=== PATIENT | male | born 1955 ===

== ENCOUNTER 2021-10-30 07:47 | Outpatient (REF) | payer OTHER, SELFPAY ==
--- NOTE | ~2021-10-30 | XR_ITS ---
EXAMINATION: KNEE X-RAY CLINICAL INFORMATION: Pain COMPARISON: None previous left knee x-ray December 2007 TECHNIQUE: 3 views of each knee FINDINGS: Left: Bone alignment is normal. No fracture or dislocation is seen. There is are tricompartment arthritis. There is no significant suprapatellar joint effusion. There are soft tissue ossifications posterior to the knee joint questionable for ossified intra-articular loose bodies and there may be fluid in the posterior knee joint. Right: There may be mild varus angulation. Bone alignment is otherwise normal. No fracture or dislocation is seen. There is tricompartment arthritis. There is an osteophyte at the quadriceps tendon insertion to the patella. There is no joint effusion. XR/XR knee RT 2V IMPRESSION: Bilateral arthritis. Question ossified intra-articular loose bodies in the posterior left knee joint.
--- NOTE | ~2021-10-30 | XR_ITS ---
EXAMINATION: KNEE X-RAY CLINICAL INFORMATION: Pain COMPARISON: None previous left knee x-ray December 2007 TECHNIQUE: 3 views of each knee FINDINGS: Left: Bone alignment is normal. No fracture or dislocation is seen. There is are tricompartment arthritis. There is no significant suprapatellar joint effusion. There are soft tissue ossifications posterior to the knee joint questionable for ossified intra-articular loose bodies and there may be fluid in the posterior knee joint. Right: There may be mild varus angulation. Bone alignment is otherwise normal. No fracture or dislocation is seen. There is tricompartment arthritis. There is an osteophyte at the quadriceps tendon insertion to the patella. There is no joint effusion. XR/XR knee standing BI IMPRESSION: Bilateral arthritis. Question ossified intra-articular loose bodies in the posterior left knee joint.
--- NOTE | ~2021-10-30 | XR_ITS ---
EXAMINATION: KNEE X-RAY CLINICAL INFORMATION: Pain COMPARISON: None previous left knee x-ray December 2007 TECHNIQUE: 3 views of each knee FINDINGS: Left: Bone alignment is normal. No fracture or dislocation is seen. There is are tricompartment arthritis. There is no significant suprapatellar joint effusion. There are soft tissue ossifications posterior to the knee joint questionable for ossified intra-articular loose bodies and there may be fluid in the posterior knee joint. Right: There may be mild varus angulation. Bone alignment is otherwise normal. No fracture or dislocation is seen. There is tricompartment arthritis. There is an osteophyte at the quadriceps tendon insertion to the patella. There is no joint effusion. XR/XR knee LT 2V IMPRESSION: Bilateral arthritis. Question ossified intra-articular loose bodies in the posterior left knee joint.
== END 2021-10-30 07:48 | disposition home or self-care (01) ==
LOC: HO.HOSX 07:47
PROVIDERS: Visit Provider Physician Assistant
DX: M17.0 Bilateral primary osteoarthritis of knee (principal)
CPT/HCPCS: 73560; 73565; 99202

== ENCOUNTER → 2022-04-26 12:54 | Outpatient (BNVA) | payer OTHER, SELFPAY | PROVIDERS: PCP Internal Medicine; Visit Provider Anesthesiology | DX: M17.0 Bilateral primary osteoarthritis of knee (principal) | CPT/HCPCS: 99202 ==

== ENCOUNTER 2022-05-18 06:30 | Outpatient (REF) | payer OTHER, SELFPAY ==
--- NOTE | ~2022-05-18 | FL_ITS ---
INDICATION: Intraoperative fluoroscopy. FLUOROSCOPY: Fluoroscopy Time: 0.3 minutes Dose: 3.5 mGy Images saved: 1 FINDINGS: A single intraoperative fluoroscopic image is submitted during reported procedure of the left knee. Correlation with operative report. Evaluation is limited secondary to fluoroscopic technique. IMPRESSION: Intra-operative fluoroscopic imaging provided by radiology during reported procedure of the left knee. Please refer to operative note for further information.
== END 2022-05-18 06:31 | disposition home or self-care (01) ==
LOC: CF 06:30
PROVIDERS: Visit Provider Anesthesiology
DX: M17.0 Bilateral primary osteoarthritis of knee (principal)
CPT/HCPCS: 64447; J1100

== ENCOUNTER 2022-05-25 06:09 | Outpatient (REF) | payer OTHER, SELFPAY ==
--- NOTE | ~2022-05-25 | FL_ITS ---
EXAMINATION: XR FLUOROSCOPY WITH IMAGES CLINICAL INFORMATION: Osteoarthritis COMPARISON: Radiographs knees 10/28/2021. TECHNIQUE: Fluoroscopy Supervised By: Dr. Jean Goldstein. Fluoroscopy Time: 0.2 minutes. Cumulative Dose: 3.19 mGy. DAP: 0.871 Gycm2. Images: 4. FINDINGS: There are spinal needles adjacent to the distal right femoral shaft, medial and lateral sides, mid depth. There is a spinal needle adjacent to the right proximal tibia on medial side mid depth. There are degenerative changes again seen with narrowing greatest medial knee joint compartment. FL/FL guidance in treatment room IMPRESSION: Fluoroscopy for pain management procedures.
== END 2022-05-25 06:10 | disposition home or self-care (01) ==
LOC: CF 06:09
PROVIDERS: Visit Provider Anesthesiology
DX: M17.0 Bilateral primary osteoarthritis of knee (principal)
CPT/HCPCS: 64454; J2795

== ENCOUNTER → 2022-05-27 08:37 | Outpatient (BNVA) | payer OTHER, SELFPAY | PROVIDERS: PCP Internal Medicine; Visit Provider Anesthesiology | DX: M17.0 Bilateral primary osteoarthritis of knee (principal) | CPT/HCPCS: Q3014 ==

== ENCOUNTER 2022-11-26 13:54 | Emergency (ER) | payer OTHER, SELFPAY ==
--- NOTE | ~2022-11-26 | XR_ITS ---
EXAMINATION: XR CHEST CLINICAL INFORMATION: Chest pain, dyspnea on exertion. COMPARISON: Chest radiographs dated 03/24/2010. TECHNIQUE: 2 views of the chest were obtained. FINDINGS: No significant abnormality is noted involving the heart, lungs, mediastinum, bony thorax or soft tissues. XR/XR chest 2V IMPRESSION: No acute cardiopulmonary process.
--- NOTE | 2022-11-26 13:58 | ECG_ITS ---
Test Reason : SOB Blood Pressure : / mmHG Vent. Rate : 078 BPM Atrial Rate : 078 BPM P-R Int : 178 ms QRS Dur : 152 ms QT Int : 440 ms P-R-T Axes : 001 006 172 degrees QTc Int : 501 ms Normal sinus rhythm Left bundle branch block Abnormal ECG When compared with ECG of 14-MAR-2012 06:26, No significant change was found Referred By: Generic ED Physician Electronically Signed By:Sami Jonas
[2022-11-26 14:02] VITALS: BP 149/59; PULSE 76; RESP 18; TEMP 36.6; O2SAT 96; BMI 35.3
--- NOTE | 2022-11-26 14:05 | ED.GENADULT ---
HPI - General Adult General Chief complaint: Dyspnea Stated complaint: SOB Time Seen by Provider: 11/26/22 14:01 Source: patient Mode of arrival: ambulatory Limitations: no limitations History of Present Illness HPI narrative: Patient is a 67-year-old male with history of CVA, T2DM, HTN, HLD presenting with dyspnea on exertion and burning sensation to his chest. He denies dyspnea or chest pain at rest, states symptoms are only present on exertion. Patient states that he is symptoms have been present for several years and have been slowly worsening. He states that he was doing yard work outside today and stood from a seated position and felt presyncopal. He quit smoking ten years prior. He denies any family history of sudden cardiac . He denies any current chest pain or dyspnea. He described his chest pain as a substernal burning. He denied any calf pain or swelling, denies any lower extremity edema. He denies any radiation of pain to his back. He denies any orthopnea, PND. He denies any abdominal pain, nausea, vomiting. He is not anticoagulated but takes daily ASA. He states he is weaning off of 1 psychiatric medication in increasing the dose of another, but he is unsure of the names of his medications. MD complaint: dyspnea on exertion Onset (ago): year(s) Location: chest Radiation: non-radiation Severity: severe Quality: burning Pain Consistency: intermittent and now resolved Relieving factors: rest Exacerbating factors: movement Associated symptoms: chest pain and shortness of breath Treatments prior to arrival: none Related Data Home Medications Medication Instructions Recorded Confirmed amlodipine 10 mg tablet 10 mg PO DAILY 10/30/21 04/26/22 atorvastatin 80 mg tablet 80 mg PO DAILY 10/30/21 04/26/22 dapagliflozin 10 mg tablet 10 mg PO DAILY 10/30/21 04/26/22 ([facility]) ezetimibe 10 mg tablet 10 mg PO DAILY 10/30/21 04/26/22 fluoxetine 20 mg capsule 60 mg PO DAILY 10/30/21 04/26/22 hydrochlorothiazide 25 mg tablet 25 mg PO DAILY 10/30/21 04/26/22 losartan 100 mg tablet 100 mg PO DAILY 10/30/21 04/26/22 metformin 1,000 mg tablet 1,000 mg PO BID 10/30/21 04/26/22 omeprazole 20 mg capsule,delayed 20 mg PO DAILY 10/30/21 04/26/22 release oxcarbazepine 300 mg tablet 300 mg PO BID 10/30/21 04/26/22 sitagliptin phosphate 100 mg 100 mg PO DAILY 10/30/21 04/26/22 tablet (Januvia) aspirin 81 mg tablet,delayed 81 mg PO DAILY 04/26/22 04/26/22 release (Adult Low Dose Aspirin) Allergies Allergy/AdvReac Type Severity Reaction Status Date / Time No Known Allergies Allergy Mild NOT Unverified 05/27/22 08:38 APPLICABLE lisinopril Allergy Unknown Unknown Verified 05/27/22 08:38 Review of Systems Review of Systems: Yes all other systems are reviewed and are negative Constitutional: Constitutional: Reports as per HPI, Denies chills, Denies fatigue and Denies fever(s) Eyes: Eyes: Reports no additional eye complaints ENT: Reports system reviewed and no additional complaints, except as documented Cardiovascular: Cardiovascular: Denies chest pain at rest, Reports chest pain with activity, Reports Epigastric Pain, Denies diaphoresis, Denies syncope, Denies claudication, Denies leg edema, Reports lightheadedness, Denies Loss of Consciousness, Denies radiating jaw, neck or arm pain, Denies palpitations, Reports dyspnea, Reports dyspnea on exertion and Denies orthopnea Respiratory: Respiratory: Denies chest congestion, Denies cough, Denies hemoptysis, Denies pain on inspiration, Reports dyspnea, Reports dyspnea on exertion and Denies wheezing Gastrointestinal: Gastrointestinal: Denies abdominal pain, Denies melena, Denies hematochezia, Denies nausea and Denies vomiting Genitourinary: Genitourinary: Reports no additional male genitourinary complaints Musculoskeletal: Musculoskeletal: Reports no additional musculoskeletal complaints Integumentary/Breasts: Skin/Breast: Reports system reviewed and no additional complaints, except as docu Neurologic: Reports system reviewed and no additional complaints, except as documented and Denies syncope Psychiatric: Psychiatric: Reports no additional psychiatric complaints Endocrine: Endocrine: Reports no additional endocrine complaints, Denies fatigue and Denies palpitations Hematologic/Lymphatic: Hematologic/Lymphatic: Reports no additional hematologic/lymphatic complaints Allergic/Immunologic: Allergic/Immunologic: Reports no additional allergic/immunologic complaints and Denies wheezing PMFSH Past Medical History Medical History (Updated 11/26/22 @ 15:38 by Shonna Pineda NP) Diabetes Hypercholesteremia Hypertension Seizure Surgical History (Updated 10/30/21 @ 14:20 by FATMATA Hernandez) H/O lithotripsy Hx of cystoscopy Social History Social History (Updated 10/30/21 @ 14:21 by FATMATA Hernandez) Alcohol intake: never Smoked in Last 30 Days: No Use of substances other than those prescribed or required for medical reasons: No Advance Directives: Yes Advance Directives Information Provided: Yes Advance Directives on File: No Current occupational status: disabled Physical Exam ED Vital Signs: Vital Signs - 24 hr 11/26/22 14:02 11/26/22 14:18 11/26/22 15:56 Temperature 97.8 F 97.9 F Pulse Rate 76 78 76 Respiratory Rate 18 17 16 Blood Pressure 149/59 H 157/61 H 139/56 L Pulse Oximetry 96 96 95 Oxygen Delivery Method Room Air Room Air Room Air BMI result Body Mass Index 35.3 Const General: cooperative, healthy appearing and no acute distress Orientation/consciousness: oriented to person, oriented to place, oriented to time and patient oriented x3 Limitations: no limitations HENMT Head: Yes normocephalic and Yes atraumatic Ears: external ears normal General nose exam: Normal external nose present Face and sinus: Yes face symmetric Mouth: oropharynx normal and moist mucous membranes Throat: Yes uvula midline Eyes Pupils: Equal, round and reactive pupils present Neck Neck: Yes normal visual inspection and Yes supple Resp Effort & Inspection: normal respiratory effort and able to speak in complete sentences Auscultation: clear to auscultation bilaterally Cardio Rate: regular rate Rhythm: regular rhythm Heart sounds: S1 normal heart sound present and S2 normal heart sound present GI Palpation (GI): Soft to palpation and nontender Auscultation: normoactive bowel sounds General: Yes no CVA tenderness Back/Spine/Pelvis Back: no CVA tenderness Skin General skin exam: elasticity normal and turgor normal Neuro General: oriented to person, oriented to place, oriented to time, patient oriented x3, moves all extremities, no focal motor deficits and CN's II-XI intact bilaterally Cranial nerves: Yes Equal, round and reactive pupils present Cognition (Neuro): normal cognition Extrem General: Yes full ROM, Yes no pedal edema and Yes no calf tenderness Psych Mental Status: mental status grossly normal Affect: normal affect Thought process: Normal thought process present Medical Decision Making Medical Decision Making MDM Narrative: Patient is a 67-year-old male with history of CVA, T2DM, HTN, HLD presenting with dyspnea on exertion and burning sensation to his chest for the past several years which was progressively worsened. On exam he is awake, A+Ox3, in no acute distress, normal neurological exam without focal deficits, denies chest pain or dyspnea at rest, mildly hypertensive, otherwise VS WNL, no lower extremity edema, lungs clear throughout. EKG without evidence of STEMI, LBBB present on prior EKG from 2011. Given reported symptoms and high risk features, concerned for ACS. Less likely PE, low risk Wells, pneumothorax, thoracic aortic dissection, cardiac effusion/tamponade, esophageal rupture. Unlikely endocarditis, pericarditis, pneumonia. Plan: labs including troponin, EKG, CXR, reassess 16:00 Labs unremarkable, troponin negative, CXR normal. Feel patient is stable to discharge home at this time with referral to cardiology. Instructed patient to follow up with PCP ZANE. Return precautions discussed at bedside. Differential Diagnosis Differential Diagnoses: The differential diagnosis associated with the presentation includes As above. Admission/Observation Consideration of admission/observation: Escalation of care including admission/observation considered Lab Data [facility] Lab Attestation statement: I reviewed the patient's lab results. 11/26/22 14:11 11/26/22 14:11 Labs: Lab Results 11/26/22 11/26/22 11/26/22 Range/Units 14:11 14:11 14:11 WBC 9.8 (4.8-10.8) X10*3/uL RBC 5.21 (4.60-5.80) X10*6/uL Hgb 14.6 (14.0-18.0) g/dl Hct 44.0 (42.0-52.0) % MCV 84.5 (80.0-98.0) fL MCH 28.0 (27.0-33.0) pg MCHC 33.2 (31.0-36.0) g/dl RDW 13.8 (11.0-16.0) % Plt Count 292 (160-400) X10*3/uL MPV 10.2 (9.4-12.4) fL Immature Gran % (Auto) 1.2 H (0.0-0.4) % Neut % (Auto) 67.8 (45-73) % Lymph % (Auto) 18.5 L (20-40) % [place] % (Auto) 6.8 (2-11) % Eos % (Auto) 4.4 H (0-4) % Baso % (Auto) 1.3 (0-2) % Lymph # (Auto) 1.8 (1.2-4.9) X10*3/uL [place] # (Auto) 0.7 (0.1-1.2) X10*3/uL Eos # (Auto) 0.4 (0.0-0.4) X10*3/uL Baso # (Auto) 0.1 (0.0-0.2) X10*3/uL Abs Immat Gran (auto) 0.12 H (0.00-0.03) X10*3/uL Absolute Neuts (auto) 6.6 (2.0-8.3) x10*3/uL Absolute Nucleated RBC 0.000 (0.0-0.012) X10*3/uL Nucleated RBC % (auto) 0.0 (0.0-0.2) /100WBC PT 11.3 (10.0-13.1) SEC INR 1.0 (0.9-1.1) Sodium 140 (135-145) mmol/L Potassium 4.0 (3.3-5.1) mmol/L Chloride 104 (96-108) mmol/L Carbon Dioxide 24 (22-29) mmol/L Anion Gap 16 (12-20) BUN 20 H (9-16) mg/dL Creatinine 0.99 (0.5-1.4) mg/dL Estim Creat Clear Calc 93.2 Estimated GFR > 60 Random Glucose 242 H (60-115) mg/dL Calcium 9.9 (8.4-10.2) mg/dL Troponin I High Sens (<3.5-35.0) ng/L 11/26/22 Range/Units 14:11 WBC (4.8-10.8) X10*3/uL RBC (4.60-5.80) X10*6/uL Hgb (14.0-18.0) g/dl Hct (42.0-52.0) % MCV (80.0-98.0) fL MCH (27.0-33.0) pg MCHC (31.0-36.0) g/dl RDW (11.0-16.0) % Plt Count (160-400) X10*3/uL MPV (9.4-12.4) fL Immature Gran % (Auto) (0.0-0.4) % Neut % (Auto) (45-73) % Lymph % (Auto) (20-40) % [place] % (Auto) (2-11) % Eos % (Auto) (0-4) % Baso % (Auto) (0-2) % Lymph # (Auto) (1.2-4.9) X10*3/uL [place] # (Auto) (0.1-1.2) X10*3/uL Eos # (Auto) (0.0-0.4) X10*3/uL Baso # (Auto) (0.0-0.2) X10*3/uL Abs Immat Gran (auto) (0.00-0.03) X10*3/uL Absolute Neuts (auto) (2.0-8.3) x10*3/uL Absolute Nucleated RBC (0.0-0.012) X10*3/uL Nucleated RBC % (auto) (0.0-0.2) /100WBC PT (10.0-13.1) SEC INR (0.9-1.1) Sodium (135-145) mmol/L Potassium (3.3-5.1) mmol/L Chloride (96-108) mmol/L Carbon Dioxide (22-29) mmol/L Anion Gap (12-20) BUN (9-16) mg/dL Creatinine (0.5-1.4) mg/dL Estim Creat Clear Calc Estimated GFR Random Glucose (60-115) mg/dL Calcium (8.4-10.2) mg/dL Troponin I High Sens 4.1 (<3.5-35.0) ng/L Independent Interpretation I performed an independent interpretation of an: Plain X-Ray Interpretation: EKG: normal sinus rhythm with LBBB, history of LBBB, unchanged from prior, rate 78 bpm, normal NC interval, no STEMI Radiology Impression Discussion of test interpretation with radiology: I have reviewed the radiologist's reading. Radiologist Impression: FINDINGS: No significant abnormality is noted involving the heart, lungs, mediastinum, bony thorax or soft tissues. XR/XR chest 2V IMPRESSION: No acute cardiopulmonary process. External Record Review External record reviewed: Inpatient record, Office record and Outpatient record Chronic Conditions Patient?s care impacted by: Diabetes and Hypertension Discharge Plan Discharge Clinical Impression: Dyspnea on exertion, Chest pain on exertion Patient Disposition: Home, Self-Care Additional Instructions: You were evaluated in the emergency department today for chest pain and shortness of breath with exertion. Your evaluation has shown no signs of medical conditions requiring emergent intervention at this time, however we recommend that you follow-up with your primary care physician as soon as possible for further testing as an outpatient. You are being referred to a respiratory care program director, please follow-up with them this week. Return to the emergency department if you experience worsening or uncontrolled chest pain, shortness of breath, lightheadedness, feeling faint, loss of consciousness, nausea, vomiting, abdominal pain, or any other concerning symptoms. Prescriptions: No Action Januvia 100 mg tablet 100 mg PO DAILY Farxiga 10 mg tablet 10 mg PO DAILY ezetimibe 10 mg tablet 10 mg PO DAILY losartan 100 mg tablet 100 mg PO DAILY hydrochlorothiazide 25 mg tablet 25 mg PO DAILY omeprazole 20 mg capsule,delayed release(DR/EC) 20 mg PO DAILY metformin 1,000 mg tablet 1,000 mg PO BID amlodipine 10 mg tablet 10 mg PO DAILY oxcarbazepine 300 mg tablet 300 mg PO BID atorvastatin 80 mg tablet 80 mg PO DAILY fluoxetine 20 mg capsule 60 mg PO DAILY aspirin [Adult Low Dose Aspirin] 81 mg tablet,delayed release (DR/EC) 81 mg PO DAILY Referrals: [facility] Cardiovascular Services [Provider Group]
--- NOTE | 2022-11-26 14:07 | PC.NURSE ---
Pt. on pvc monitor at this time. Labs collected and sent as ordered.
[2022-11-26 14:17] LABS: MANUAL DIFF FLAG NO
[2022-11-26 14:18] VITALS: BP 157/61; PULSE 78; RESP 17; O2SAT 96
[2022-11-26 14:20] LABS: Basophils Absolute Auto 0.1 X10*3/uL (0.0-0.2); Basophils Percent Auto 1.3 % (0-2); Eosinophils Absolute Auto 0.4 X10*3/uL (0.0-0.4); Eosinophils Percent Auto 4.4 % (0-4); Hemoglobin 14.6 g/dl (14.0-18.0); Imm Gran Abs Auto 0.12 X10*3/uL (0.00-0.03); Imm Gran Pct Auto 1.2 % (0.0-0.4); Lymphocytes Absolute Auto 1.8 X10*3/uL (1.2-4.9); Lymphocytes Percent Auto 18.5 % (20-40); Mean Corpuscular HGB Conc 33.2 g/dl (31.0-36.0); Mean Corpuscular Volume 84.5 fL (80.0-98.0); Mean Platelet Volume 10.2 fL (9.4-12.4); Monocytes Absolute Auto 0.7 X10*3/uL (0.1-1.2); Monocytes Percent Auto 6.8 % (2-11); Neutrophils Absolute Auto 6.6 x10*3/uL (2.0-8.3); Neutrophils Percent Auto 67.8 % (45-73); Platelet Count 292 X10*3/uL (160-400); Red Blood Count 5.21 X10*6/uL (4.60-5.80); Red Cell Distribution Width 13.8 % (11.0-16.0); White Blood Count 9.8 X10*3/uL (4.8-10.8)
[2022-11-26 14:27] LABS: Prothrombin Time 11.3 SEC (10.0-13.1)
[2022-11-26 14:33] LABS: Anion Gap 16 (12-20); Blood Urea Nitrogen 20 mg/dL (9-16); Calcium 9.9 mg/dL (8.4-10.2); Carbon Dioxide 24 mmol/L (22-29); Chloride 104 mmol/L (96-108); Creatinine Clr Calc Pharmacy 93.2; Estimated Glomerular Filt Rate > 60; Glucose Random 242 mg/dL (60-115); Sodium 140 mmol/L (135-145)
[2022-11-26 14:41] LABS: Troponin-I High Sensitivity 4.1 ng/L (<3.5-35.0)
[2022-11-26 15:56] VITALS: BP 139/56; PULSE 76; RESP 16; TEMP 36.6; O2SAT 95
--- NOTE | 2022-11-26 15:56 | MHC.EDTECH ---
THIS PCT ASSUMED CARE OF PATIENT AT 1500 ,VITALS SIGN TAKEN ,PT IS RESTING QUIETLY IN BED .
[2022-11-26 16:26] LABS: B Type Natriuretic Peptide 60 pg/mL (<100)
[2022-11-26 16:48] VITALS: BP 131/60; PULSE 67; RESP 19; O2SAT 97
== END 2022-11-26 16:56 | disposition home or self-care (01) ==
PROVIDERS: Registered Nurse Emergency; Emergency Provider Emergency Medicine Emergency Medical Services; PCP Internal Medicine
DX: R06.02 Shortness of breath (principal); R07.89 Other chest pain; E11.9 Type 2 diabetes mellitus without complications; I10 Essential (primary) hypertension; Z79.899 Other long term (current) drug therapy; Z79.84 Long term (current) use of oral hypoglycemic drugs
CPT/HCPCS: 36415; 71046; 80048; 83880; 84484; 85025; 85610; 93005; 99283; 99284

== ENCOUNTER 2024-03-20 10:46 | Outpatient (REF) | payer OTHER, SELFPAY ==
[2023-05-27 09:15] VITALS: BP 124/44; BP 130/56; BP 140/44; BMI 35.4
[2024-03-20 11:05] LABS: MANUAL DIFF FLAG NO
[2024-03-20 11:23] LABS: Basophils Absolute Auto 0.1 X10*3/uL (0.0-0.2); Basophils Percent Auto 1.8 % (0-2); Eosinophils Absolute Auto 0.6 X10*3/uL (0.0-0.4); Eosinophils Percent Auto 8.6 % (0-4); Hematocrit 42.6 % (42.0-52.0); Hemoglobin 14.5 g/dl (14.0-18.0); Imm Gran Abs Auto 0.02 X10*3/uL (0.00-0.03); Imm Gran Pct Auto 0.3 % (0.0-0.4); Lymphocytes Absolute Auto 1.7 X10*3/uL (1.2-4.9); Lymphocytes Percent Auto 25.4 % (20-40); Mean Corpuscular Hemoglobin 29.7 pg (27.0-33.0); Mean Corpuscular Volume 87.1 fL (80.0-98.0); Mean Platelet Volume 10.9 fL (9.4-12.4); Monocytes Absolute Auto 0.6 X10*3/uL (0.1-1.2); Monocytes Percent Auto 9.1 % (2-11); Neutrophils Absolute Auto 3.7 x10*3/uL (2.0-8.3); Neutrophils Percent Auto 54.8 % (45-73); Platelet Count 189 X10*3/uL (160-400); Red Blood Count 4.89 X10*6/uL (4.60-5.80); Red Cell Distribution Width 13.5 % (11.0-16.0); White Blood Count 6.8 X10*3/uL (4.8-10.8)
[2024-03-20 11:27] LABS: Estimated Average Glucose 183 mg/dL
[2024-03-20 12:28] LABS: Cholesterol 84 mg/dL (<200); Glucose Fasting 133 mg/dL (60-99); HDL Cholesterol 29 mg/dL (>40); LDL Cholesterol Calculated 41 mg/dL (<100); Triglycerides 73 mg/dL (<150)
[2024-03-20 13:42] LABS: Creatinine Urine 72.98 mg/dL
== END 2024-03-20 10:47 | disposition home or self-care (01) ==
LOC: HO.LAB 10:46
PROVIDERS: PCP Internal Medicine; Visit Provider Internal Medicine
DX: E11.9 Type 2 diabetes mellitus without complications (principal)
CPT/HCPCS: 36415; 80061; 82043; 82570; 82947; 83036; 85025

== ENCOUNTER 2024-04-05 15:05 | Outpatient (AMB) | payer OTHER, SELFPAY ==
[2023-05-27 09:15] VITALS: BP 124/44; BP 130/56; BP 140/44; BMI 35.4
[2024-03-20 15:04] VITALS: BP 124/44; BP 130/56; BP 140/44; BMI 35.4
--- NOTE | 2024-04-05 15:09 | MHC.OFFVIS ---
Intake Visit Reasons: OV- B/L knee pain Intake Note: Geovani is a 68 year old male who presents today for follow up of his bilateral knee OA. No hx of gel injections. He reports that his right knee is the worst but he seems that both are equal to pain. Allergies No Known Allergies Allergy (Mild, Unverified 05/27/22 08:38) NOT APPLICABLE lisinopril Allergy (Unknown, Verified 05/27/22 08:38) Unknown HPI HPI OV- B/L knee pain: Details: 68-year-old male who presents in the office today for a follow-up of bilateral knee pain. I last saw the patient in the office on 10/30/21 when we discussed getting an approval for Gel One injection. I offered a lower dose of cortisone injection but he deferred at that time. The patient has tried and failed cortisone injection, Tylenol 600 mg TID, ibuprofen 800 mg TID and home exercise program in the past. He was not a surgical candidate due to his medical history of elevated HbA1c. While in the office today, he mentions his osteoarthritis is worse in the right knee than the left; however he experiences equal pain in the bilateral knees. Last A1c obtained on 03/20/24 was 8.0. He does not have a history of gel or cortisone injections. The patient has a significant medical history of diabetes mellitus, hypertension, and history of stroke. [facility], [facility] Medical History (Updated 04/05/24 @ 16:02 by Lara Henry) Seizure Hypercholesteremia Hypertension Diabetes Surgical History (Updated 10/30/21 @ 14:20 by Eliza Erickson [facility]) H/O lithotripsy Hx of cystoscopy Social History Alcohol intake: never Patient Tobacco Use Status: Former Tobacco user Tobacco use type: Cigarette Cigarette Packs Per Day: 1.5 Years Smoked: 40 Current occupational status: disabled Review of Systems Const All systems reviewed & are unremarkable except as noted in HPI and below Physical Exam Const General: cooperative, healthy appearing and no acute distress Resp Effort & Inspection: normal respiratory effort and able to speak in complete sentences Cardio Rate: regular rate Peripheral pulses: Peripheral pulses 2+ throughout GI Palpation (GI): Soft to palpation Skin Lesions: no lesions Rashes: no rashes Extrem Other: Bilateral knees: Normal to inspection. No ecchymosis, erythema, or joint effusion. No tenderness to palpation along the medial or lateral joint lines. Full knee extension and flexion. Crepitus felt with ROM. NVI. Office Procedures Joint Injection/Aspiration Joint Injection/Aspiration Primary Site: right knee Secondary Site: left knee Injected: 80 mg of, DepoMedrol, with 8 mL of (2% plain lido ) and in the joint Approach Used: anterolateral Procedure: The patient tolerated the procedure well, but had some pain with the injection and there was some relief with the local anesthesia Coding 34422 - Large joint Procedure code (CPT) selection complete Assessment & Plan Assessment & Plan (1) Osteoarthritis of knees, bilateral: Code(s): M17.0 - Bilateral primary osteoarthritis of knee Category: Medical (2) Diabetes: Code(s): E11.9 - Type 2 diabetes mellitus without complications Category: Medical Plan Mr. Shearer is a 68-year-old male who presents in the office today for a follow-up of bilateral knee pain. I last saw the patient in the office on 10/30/21 when we discussed getting an approval for Gel One injection. I offered a lower dose of cortisone injection but he deferred at that time. The patient has tried and failed cortisone injection, Tylenol 600 mg TID, ibuprofen 800 mg TID and home exercise program in the past. He was not a surgical candidate due to his medical history of elevated HbA1c. While in the office today, he mentions his osteoarthritis is worse in the right knee than the left; however he experiences equal pain in the bilateral knees. Last A1c obtained on 03/20/24 was 8.0. He does not have a history of gel or cortisone injections. The patient has a significant medical history of diabetes mellitus, hypertension, and history of stroke. The patient was offered a cortisone injection in the body parts with 80 mg of Depo-Medrol. The patient was explained the risks, benefits, and alternatives to receiving this injection. After receiving consent for the injection, the patient had the procedure done while in the office today. The patient tolerated the procedure well with no complication. Due to the patient?s history of diabetes, they were instructed to monitor his blood glucose level. The patient was informed that they could see a rise in their numbers and if the numbers became too high, they were instructed to call their PCP. The patient was also informed that they could have facial flushing as a side effect of the injection, but this will pass. We discussed the role of conservative treatment versus surgical intervention of a total knee arthroplasty. He would like to proceed with trying a cortisone injection at this time. Should the cortisone injection fail to provide relief he will contact the office to discuss proceeding with surgical intervention. Follow up will be PRN, or sooner if needed X-rays of the bilateral knee which were obtained on 10/30/21 revealed bilateral knee osteoarthritis. Patient Instructions: Scribed by Lara Henry medical records auditor, for Sherie Frank PA-C on 04/05/24 at 3:28 pm EST. Coding Level of Care Code Est Pt Level 4 (08972) Diagnoses Osteoarthritis of knees, bilateral M17.0 Diabetes E11.9 CPT Codes Coding - 30255 Large joint: 26811 - Large joint ([id number])
== END 2024-04-05 15:53 | disposition home or self-care (01) ==
LOC: HO.HOS 15:05
PROVIDERS: PCP Internal Medicine; Visit Provider Physician Assistant
DX: M17.0 Bilateral primary osteoarthritis of knee (principal); E11.9 Type 2 diabetes mellitus without complications
CPT/HCPCS: 20610; 99214

== ENCOUNTER → 2024-04-05 15:05 | Outpatient (BNVA) | payer OTHER, SELFPAY ==
[2024-03-20 15:04] VITALS: BP 124/44; BP 130/56; BP 140/44; BMI 35.4
== END ==
PROVIDERS: PCP Internal Medicine; Visit Provider Physician Assistant
DX: M17.0 Bilateral primary osteoarthritis of knee (principal)
CPT/HCPCS: 20610; 99212; J1010

== ENCOUNTER → 2024-04-17 14:28 | Outpatient (REF) | payer OTHER, SELFPAY ==
[2024-03-20 15:04] VITALS: BP 124/44; BP 130/56; BP 140/44; BMI 35.4
--- NOTE | 2024-04-17 14:31 | CA_ITS ---
Transthoracic Echocardiogram Patient (Last, First, Middle): Geovani Shearer J Gender: Male Date of : 1955 Age: 68 Procedure Date: 04/17/2024 Procedure Type: Transthoracic Echocardiogram Location: OP Height: 175.26 cm Weight: 109.77 kg BSA: 2.24 m2 Heart Rate: 72 bpm BP: 118 / 56 mmHg Screw Machine Operator: LIBERTY Referring MD: Jose Luis Bailey DO Individual Pension Consultant: Morales Guzman MD Symptoms: MURMUR Study Quality: Technically Difficult ECG Rhythm: Sinus Conclusions: - 1. Technically limited study 2. Hyperdynamic LV EF greater than 70% with severe asymmetric septal hypertrophy without clear significant obstructive physiology 3. Cardiac valves are not well visualized with calcific aortic valve changes noted on some use with normal cardiac valvular Dopplers 4. Upper limits of normal ascending aortic size on one view Findings Procedure Information Contrast agent, definity, is being given per protocol without apparent complications. The quality of the study was technically difficult. The study quality is limited by patients body habitus and lung artifact. Left Ventricle Normal left ventricular cavity size. There is normal left ventricular wall thickness. The left ventricular systolic function is hyperdynamic. The visually estimated ejection fraction is >70%. Spectral Doppler is indicative of an impaired relaxation filling pattern. E/E prime ratio is between 8 and 15 consistent with indeterminate filling pressures. There is severe septal asymmetric hypertrophy. Right Ventricle The right ventricle was not well visualized. Atria The left atrium is normal in size. Interatrial shunt cannot be excluded. The right atrium was not well visualized. Aortic Valve The aortic valve was not well visualized. There is mild calcification of the aortic valve. There is no aortic valve stenosis. There is no aortic valve regurgitation. Mitral Valve There is mild anterior and posterior mitral leaflet thickening. There is mild mitral annular calcification. There is trace mitral valve regurgitation. There is no mitral valve stenosis. Pulmonic Valve The pulmonic valve was not well visualized. Tricuspid Valve The tricuspid valve was not well visualized. Great Vessels The aorta was not well visualized. The pulmonary artery was not well visualized. Venous The inferior vena cava is normal in size. Pericardium/Pleural The pericardium was not well visualized. Prior Study Comparison No prior study available for comparison. Measurements 2D Linear Measurements IVSd: 1.71 0.6-0.9/0.6-1.0 cm LVIDd: 4.24 3.9-5.3/4.2-5.9 cm LVIDd Index: 1.89 2.4-3.2/2.2-3.1 cm/m2 LVIDs: 2.77 2.0-3.6 cm LA Diam: 3.80 2.7-3.8/3.0-4.0 cm LAIDs Index: 1.70 1.5-2.3 cm/m2 LVOT Diam: 2.40 3.0+(-)1.3 cm 2D Systolic Function EF 4C: 83.20 >55% EF 2C: 84.50 >55% EF BiP: 83.30 >55% Mitral Valve MV Pk E: 0.90 MV PK A: 1.29 MV Decel Time: 201.00 E/A: 0.70 E'Lateral: 5.11 E'Medial: 5.22 E/E' Med: 17.20 E/E' Lat: 17.60 PHT: 59.00 MVA PHT: 3.73 Decel [place]: 4.48 Aortic Valve AoV Pk Constantin: 1.60 AoV Mn Constantin: 1.16 AoV VTI: 0.32 AoV Pk Grad: 10.00 Aov Mn Grad: 6.00 MANUEL Cont.VTI: 4.86 LVOT LVOT Pk Constantin: 1.57 LVOT Mn Constantin: 1.19 LVOT VTI: 0.34 LVOT Pk Grad: 10.00 LVOT Mn Grad: 6.00 LVOT Diam: 2.40 LVOT Area: 4.52 Diastolic Function MV Pk E: 0.90 MV Pk A: 1.29 E/A: 0.70 E'Medial: 5.22 E/E' Med: 17.20 E' Laterial: 5.11 E/E' Lat: 17.60 Right Ventricle TAPSE (mm): 29.00 TVS' Constantin: 13.20 Tricuspid Valve RA Press: 3.00 Great Vessels Aorta Sinus of Valsalva: 4.00 2.0-3.5 cm Ao Asc: 3.60 2.1-3.4 cm Pulmonary Valve PV Pk Constantin: 0.92 Peak PV Grad: 3.00 Updated in Other Vendor System with Status of Final Morales Guzman MD electronically signed on 04/17/2024 4:38:28 PM with status of Final
== END ==
LOC: HO.CARD 14:28
PROVIDERS: PCP Internal Medicine; Visit Provider Student in an Organized Health Care Education/Training Program
DX: R01.1 Cardiac murmur, unspecified (principal)
CPT/HCPCS: 93306; Q9957

== ENCOUNTER → 2024-04-17 14:31 | Outpatient (BNV) | payer OTHER, SELFPAY ==
[2024-03-20 15:04] VITALS: BP 124/44; BP 130/56; BP 140/44; BMI 35.4
== END ==
PROVIDERS: PCP Internal Medicine; Visit Provider Internal Medicine Cardiovascular Disease
DX: I35.8 Other nonrheumatic aortic valve disorders (principal); I34.81 Nonrheumatic mitral (valve) annulus calcification; R93.1 Abnormal findings on diagnostic imaging of heart and coronary circulation
CPT/HCPCS: 93306